=== PATIENT | female | born 1985 | race Hispanic/Latino ===

== ENCOUNTER 2017-09-12 00:22 | Day surgery (SDC) | payer BC ==
[2017-09-11 12:23] LABS: MEAN CELL HGB 29.7 pg (26-34); MEAN CELL HGB CONCENTRATION 33.2 g/dL (33-37); MEAN CORP VOLUME 89.6 fL (78-100); MEAN PLATELET VOLUME 8.1 fL (7.8-11.0); RED CELL DISTRIBUTION WIDTH 13.7 % (11.5-14.5); WHITE BLOOD CELL 6.3 10^3/uL (4.5-11.0)
--- NOTE | 2017-09-11 12:29 | PCM.EKG ---
[facility] Test Date: 2017-09-11 Test Time: 12:31:54 Pat Name: RONALD LUCIO Department: Patient ID: [id number] Room: Gender: F French Folder: : 1985 Requested By: KARLA SCHROEDER Order Number: [id number] Reading MD: Tony Martin Measurements Intervals [place] Rate: 76 P: 44 MA: 152 QRS: 14 QRSD: 78 T: 22 QT: 422 QTc: 474 Interpretive Statements Normal sinus rhythm Normal ECG No previous ECG available for comparison Electronically Signed On 09-12-2017 12:13:27 CDT by Tony Martin Please click the below link to view image of tracing.
[2017-09-11 12:47] LABS: CALCIUM 9.2 mg/dL (8.4-10.5); CARBON DIOXIDE 26.9 mmol/L (20.0-32)
[2017-09-12] VITALS (15 sets, daily range): BP systolic 118–154; BP diastolic 72–98
[~2017-09-12] VITALS: Ht 147.3 cm; Wt 104.3 kg
[~2017-09-12 00:22] MED LIST: ACET12.53 PO; BUPR100T8 PO; CLON0.5T3 PO; CLON1TAB3 PO; CYCL10TA2 PO; DULO60CA7 PO; GABA300C10 PO; HYDR200T5 PO; MEDR10TA3 PO; MELO15TA24 PO; METO50TA6 PO
[2017-09-12] MEDS ORDERED: NS 250ML 250 ML IV ONE (05:21)
[2017-09-12] MEDS ORDERED: LACTATED RINGERS 1,000 ML ONE ×2 (05:21→06:39)
[2017-09-12] MEDS ORDERED: ANCEF ONE (05:22)
[2017-09-12] MEDS ORDERED: ANCEF 3 GM in NS 100ML 100 ML IV ONE (06:00)
[2017-09-12] MEDS ORDERED: LACTATED RINGERS 1,000 ML IV SCH (06:00)
[2017-09-12] MEDS ORDERED: DECADRON ONE ×2 (06:37→12:41)
[2017-09-12] MEDS ORDERED: ZOFRAN ONE (06:37)
[2017-09-12] MEDS ORDERED: VERSED ONE (06:37)
[2017-09-12] MEDS ORDERED: SUBLIMAZE ONE ×2 (06:38→12:34)
[2017-09-12] MEDS ORDERED: DILAUDID ONE ×2 (06:38→12:22)
[2017-09-12] MEDS ORDERED: TORADOL ONE (06:38)
[2017-09-12] MEDS ORDERED: DIPRIVAN IV ONE (06:38)
[2017-09-12] MEDS ORDERED: TYLENOL PO STA (07:16)
[2017-09-12] MEDS ORDERED: TYLENOL PO ONE (09:22)
[2017-09-12] MEDS ORDERED: ACET-685 PO (09:35)
[2017-09-12] MEDS ORDERED: SODIUM CHLORIDE IR ONE (09:42)
[2017-09-12] MEDS: DILAUDID IV PRN ×3 (12:00→12:40)
[2017-09-12] MEDS: SUBLIMAZE IV PRN ×2 (12:10→13:05)
[2017-09-12] MEDS ORDERED: VENTOLIN IH PRN (12:30)
[2017-09-12] MEDS ORDERED: BENADRYL IV PRN (12:30)
[2017-09-12] MEDS ORDERED: PHENERGAN IV PRN (12:30)
[2017-09-12] MEDS ORDERED: ZOFRAN IV PRN (12:30)
[2017-09-12] MEDS ORDERED: SENSORCAINE-MPF 0.5% VIAL ONE (12:40)
[2017-09-12] MEDS ORDERED: CLONIDINE 1,000 MCG/10 ML VIAL EP ONE (12:41)
[2017-09-12] MEDS ORDERED: LIDOCAINE 2% VIAL ONE (12:44)
[2017-09-12] MEDS ORDERED: BENADRYL ONE (12:58)
[2017-09-12] MEDS ORDERED: PHENERGAN ONE (13:05)
[2017-09-12] MEDS ORDERED: TRANDATE IV ONE (13:21)
--- NOTE | 2017-09-12 13:41 | OPH ---
DATE OF SURGERY: 09/12/2017 PREOPERATIVE DIAGNOSIS: Left lateral malleolus fracture with a deltoid ligament sprain with widening of the mortise. POSTOPERATIVE DIAGNOSIS: Left lateral malleolus fracture with a deltoid ligament sprain with widening of the mortise. OPERATIVE PROCEDURE: Open reduction and internal fixation left lateral malleolus fracture. SURGEON: Kory Andrade MD ANESTHESIA: LMA. TOURNIQUET TIME: 39 minutes at 300 mmHg. DRAINS: None. BLOOD LOSS: 15 mL. DESCRIPTION OF INDICATIONS: The patient is a 32-year-old female who fell at home on 08/31/2017 and injured her left ankle. She was initially seen and placed in a cast boot. She was seen in my office yesterday and noted to have swelling and tenderness medially and laterally about the ankle. She had no fracture blisters. The patient's x-rays showed that she had a lateral malleolus fracture with 6 mm of widening of her mortise. DESCRIPTION OF PROCEDURE: The patient was taken to the operating room for open reduction and internal fixation of her lateral malleolus. The patient was placed on the operating table in the supine position. A general endotracheal anesthetic was induced without difficulty. The patient had a well-padded tourniquet placed about the left thigh. The left lower extremity was then sterilely prepped and draped. Left lower extremity was exsanguinated with an Esmarch and then the tourniquet was inflated to 300 mmHg. The patient had a lateral incision made about the left lateral malleolus. The incision was taken through the skin and the subcutaneous tissues. The fracture was then exposed subperiosteally. The fracture was then reduced and held into position with a bone clamp. We used a 6-hole tubular Synthes plate to stabilize the fracture. We used multiple cortical and cancellous screws to stabilize the plate. The final AP and lateral views of the left ankle shows that the hardware was in good position and the fractures were reduced. The mortise was reduced. The patient's wounds were then irrigated. The subcutaneous was closed with a 2-0 Monocryl in an interrupted manner. The skin was closed with a horizontal 3-0 Ethilon in an interrupted manner. A compressive dressing and a U-splint was applied. The patient was extubated in the operating room, sent to recovery in stable condition. Kory Andrade MD DR: MARYLIN/cori JOB# [id number]
[2017-09-12] MEDS ORDERED: ACET-687 PO (14:03)
--- NOTE | 2017-09-12 15:15 | DIREP ---
PROCEDURE:XRAY ANKLE MIN 3VWS-LT COMPARISON:None. INDICATIONS:POST ORIF OF THE ANKLE FINDINGS: BONES:Lateral plate and screw fixation of the distal fibula, spanning an oblique fracture. Alignment is near anatomic. Moderate plantar calcaneal spurring. JOINTS:Ankle mortise appears congruent. SOFT TISSUES:Limited by overlying splint material. OTHER:No additional findings. CONCLUSION: 1. Interval internal fixation of a distal fibular fracture with near anatomic alignment as discussed above. Dictated by: Aris Piña M.D. On 09/12/2017 at 03:12 PM
--- NOTE | 2017-09-13 10:14 | NUR ---
Post-op day one follow up post-popliteal block to left leg. Pt is at home. Pt states the block is still working as she has no pain. Pt states no questions or concerns.
== END 2017-09-12 14:50 | disposition home or self-care (01) ==
LOC: SURG 00:22
PROVIDERS: ATTEND Orthopaedic Surgery
DX: S82.62XA Displaced fracture of lateral malleolus of left fibula, initial encounter for closed fracture (principal); W18.39XA Other fall on same level, initial encounter; Y93.89 Activity, other specified; Y92.098 Other place in other non-institutional residence as the place of occurrence of the external cause; Y99.8 Other external cause status; S93.422A Sprain of deltoid ligament of left ankle, initial encounter; F17.210 Nicotine dependence, cigarettes, uncomplicated; F41.9 Anxiety disorder, unspecified; I10 Essential (primary) hypertension; M06.9 Rheumatoid arthritis, unspecified; E66.01 Morbid (severe) obesity due to excess calories; Z88.8 Allergy status to other drugs, medicaments and biological substances; Z91.041 Radiographic dye allergy status; Z72.89 Other problems related to lifestyle; Z91.018 Allergy to other foods; Z68.42 Body mass index [BMI] 45.0-49.9, adult; Z98.890 Other specified postprocedural states; Z79.899 Other long term (current) drug therapy; Z83.3 Family history of diabetes mellitus; Z82.49 Family history of ischemic heart disease and other diseases of the circulatory system; Z80.51 Family history of malignant neoplasm of kidney
CPT/HCPCS: 27792; 36415; 64450; 73610; 76000; 80053; 84702; 85027; 93005; A4649 ×3; A9150; J0690; J1100 ×2; J1170; J1200; J1885; J2001; J2250; J2405; J2550; J3010 ×2; J3490 ×2; J7030; J7050; J7120 ×2; C1713; C1715